=== PATIENT | male | born 1945 | race Native Hawaiian/Other Pacific Islander ===

== ENCOUNTER 2019-02-08 08:04 | Outpatient (CLI) | payer BC | END 2019-02-08 20:45 | disposition home or self-care (01) | LOC: RAD 08:04 | DX: R05 Cough (principal) ==

== ENCOUNTER 2022-07-22 10:26 | Outpatient (CLI) | payer BC | END 2022-07-22 21:58 | disposition home or self-care (01) | LOC: RESP 10:26 | PROVIDERS: ATTEND Family Medicine | DX: R00.1 Bradycardia, unspecified (principal) | CPT/HCPCS: 93005 ==

== ENCOUNTER 2022-08-04 08:07 | Outpatient (CLI) | payer BC | END 2022-08-04 23:56 | disposition home or self-care (01) | LOC: RAD 08:07 | PROVIDERS: ATTEND Internal Medicine Sleep Medicine | DX: J44.9 Chronic obstructive pulmonary disease, unspecified (principal) ==

== ENCOUNTER 2022-09-02 08:06 | Outpatient (CLI) | payer BC | END 2022-09-02 18:57 | disposition home or self-care (01) | LOC: CT 08:06 | PROVIDERS: ATTEND Internal Medicine Sleep Medicine | DX: J43.2 Centrilobular emphysema (principal) ==

== ENCOUNTER 2023-01-14 08:46 | Outpatient (CLI) | payer BC | END 2023-01-14 19:12 | disposition home or self-care (01) | LOC: CT 08:46 | PROVIDERS: ATTEND Internal Medicine Sleep Medicine | DX: R91.1 Solitary pulmonary nodule (principal) ==

== ENCOUNTER 2023-02-16 13:20 | Emergency (ER) | payer BC ==
[~2023-02-16] VITALS: Ht 188 cm; Wt 95.3 kg
[2023-02-16 13:45] VITALS: BP 111/54
[2023-02-16 14:15] LABS: PLATELET COUNT 226 K/uL (142-355)
[2023-02-16 14:40] LABS: POTASSIUM 4.5 mmol/L (3.6-5.2)
== END 2023-02-16 17:45 | disposition expired ==
LOC: ED 13:20
PROVIDERS: Emergency Medicine
DX: I71.30 Abdominal aortic aneurysm, ruptured, unspecified (principal)
CPT/HCPCS: 31500; 36600; 51702; 80053; 82550; 82805; 83880; 84484; 85027; 85379; 87040; 92950; 93005; 94664; 96361; 96365; 96366; 96375; 96376; 99285; J0171; J0461; J1265; J1644; J2250; J2310; J2405; J3490